=== PATIENT | female | born 1990 | race Caucasian/White ===

== ENCOUNTER 2016-12-07 21:12 | Emergency (ER) | payer MEDICAID ==
[2016-12-07 21:37] VITALS: BP 131/79; PULSE 82; RESP 16; TEMP 98.2; O2SAT 100
[2016-12-07] MEDS ORDERED: TDAP Vaccine 0.5 mL Syr IM ONE (21:41)
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
== END 2016-12-07 22:54 | disposition home or self-care (01) ==
LOC: H.ER 21:12
DX: S93.401A Sprain of unspecified ligament of right ankle, initial encounter (principal); S80.01XA Contusion of right knee, initial encounter; S46.912A Strain of unspecified muscle, fascia and tendon at shoulder and upper arm level, left arm, initial encounter; V03.10XA Pedestrian on foot injured in collision with car, pick-up truck or van in traffic accident, initial encounter; Y92.410 Unspecified street and highway as the place of occurrence of the external cause

== ENCOUNTER 2018-07-11 19:08 | Emergency (ER) | payer MEDICAID ==
[2018-07-11 19:19] VITALS: BP 131/80; PULSE 87; RESP 17; TEMP 98.2; O2SAT 98
--- NOTE | 2018-07-11 19:52 | ED PDOC ---
Upper Extremity Pain/Injury Time Seen by Provider: 07/11/18 19:20 Chief Complaint (Nursing): Upper Extremity Problem/Injury Chief Complaint (Provider): Upper Extremity Problem/Injury History Per: Patient History/Exam Limitations: no limitations Onset/Duration Of Symptoms: Hrs Current Symptoms Are (Timing): Better Additional Complaint(s): Patient is a 28 y/o female with a PMHx of asthma and a shoulder sprain who presents to the ED for evaluation of left shoulder pain. Patient was hanging a shower curtain this evening when she leaned on her left arm against a wall and heard a pop. Patient reported experiencing acute pain from her left shoulder to her elbow. At the time, patient was unable to move her left arm for 20 minutes due to the pain. Patient did not take any pain medication prior to arrival and denies any recent falls or trauma. Patient states she is now able to move her arm almost normally as the pain has decreased. Patient indicated the pain was similar to her previous shoulder sprain. PCP: Shawn Past Medical History Reviewed: Historical Data, Nursing Documentation, Vital Signs Vital Signs: Last Vital Signs Temp 98.2 F 07/11/18 19:15 Pulse 87 07/11/18 19:15 Resp 17 07/11/18 19:15 BP 131/80 07/11/18 19:15 Pulse Ox 98 07/11/18 19:15 - Medical History PMH: Asthma Denies: Chronic Kidney Disease Other PMH: shoulder sprain - Surgical History Surgical History: No Surg Hx, Tonsillectomy, (x 2) - Family History Family History: States: Unknown Family Hx - Immunization History Hx Tetanus Toxoid Vaccination: No (not sure of last tetanus) Hx Influenza Vaccination: No Hx Pneumococcal Vaccination: No - Home Medications Home Medications: Ambulatory Orders Medication Instructions Recorded Cyclobenzaprine [Cyclobenzaprine 10 mg PO Q8 PRN 5 Days tab 07/11/18 HCl] Ibuprofen [Motrin Tab] 600 mg PO Q6 PRN 7 Days tab 07/11/18 - Allergies Allergies/Adverse Reactions: Allergies Allergy/AdvReac Type Severity Reaction Status Date / Time No Known Allergies Allergy Verified 07/11/18 19:18 Review of Systems ROS Statement: Except As Marked, All Systems Reviewed And Found Negative Musculoskeletal: Positive for: Shoulder Pain (left; radiating to elbow) Physical Exam - Reviewed Nursing Documentation Reviewed: Yes Vital Signs Reviewed: Yes - Physical Exam Appears: Positive for: Uncomfortable Head Exam: Positive for: ATRAUMATIC, NORMAL INSPECTION, NORMOCEPHALIC Pulses-Radial (L): 2+ Pulses-Radial (R): 2+ Extremity: Positive for: Normal ROM (flexion and abduction of left shoulder with pain), Tenderness (to left shoulder on palpation of anterior and superior portion). Negative for: Other (point tenderness on humoral head) Neurological/Psych: Positive for: Alert, Oriented - ECG O2 Sat by Pulse Oximetry: 98 (RA) Pulse Ox Interpretation: Normal Medical Decision Making Medical Decision Making: Time: 1947 Impression: Left Shoulder Sprain Plan: - Toradol 30 mg IM - Patient advised to followup with orthopedist for MRI of ligaments. Flexeril prescription given because patient is accompanied with two young children in the ED so none given now. --- Scribe Attestation: Documented by Andrew Gibbons, acting as a scribe for DAVID Love Provider Scribe Attestation: All medical record entries made by the Scribe were at my direction and personally dictated by me. I have reviewed the chart and agree that the record accurately reflects my personal performance of the history, physical exam, medical decision making, and the department course for this patient. I have also personally directed, reviewed, and agree with the discharge instructions and disposition. Disposition - Clinical Impression Clinical Impression: Shoulder sprain - Patient ED Disposition Is Patient to be Admitted: No Counseled Patient/Family Regarding: Studies Performed, Diagnosis, Need For Followup, Rx Given - Disposition Referrals: Titi Damon III, MD [Staff Provider] - Disposition: Routine/Home Disposition Time: 20:30 Condition: STABLE Additional Instructions: Follow up with orthopedist (Dr. Damon) as you may require further evaluation of ligament or tendons. Take Ibuprofen as needed for pain. Take Flexeril at night but avoid taking it during the day if you will be driving/operating heavy machinery/need to stay awake as it may make you sleepy. Perform gentle shoulder exercises to avoid frozen shoulder. Prescriptions: Cyclobenzaprine [Cyclobenzaprine HCl] 10 mg PO Q8 PRN 5 Days tab PRN Reason: Muscle Spasm Ibuprofen [Motrin Tab] 600 mg PO Q6 PRN 7 Days tab PRN Reason: Pain, Moderate (4-7) Instructions: Shoulder Sprain (DC), Shoulder Instability (DC), Frozen Shoulder Exercises Forms: [employer] (Gambian) Print Language: TELUGU - POA Present On Arrival: None
== END 2018-07-11 20:31 | disposition home or self-care (01) ==
LOC: H.ER 19:08
DX: S43.402A Unspecified sprain of left shoulder joint, initial encounter (principal); X50.9XXA Other and unspecified overexertion or strenuous movements or postures, initial encounter; Y92.89 Other specified places as the place of occurrence of the external cause
CPT/HCPCS: 96372; 99283; J1885